=== PATIENT | male | born 1965 | race Two or more races ===

== ENCOUNTER 2017-08-25 14:14 | Outpatient (CLI) | payer OTHER | END 2017-08-25 14:23 | disposition home or self-care (01) | LOC: RAD 14:14 | DX: M54.6 Pain in thoracic spine (principal) ==

== ENCOUNTER 2019-05-17 08:05 | Outpatient (CLI) | payer OTHER | END 2019-05-17 08:20 | disposition home or self-care (01) | LOC: NUCLEAR 08:05 | DX: M06.89 Other specified rheumatoid arthritis, multiple sites (principal) | CPT/HCPCS: 78315; A9503 ==

== ENCOUNTER 2022-03-17 13:21 | Outpatient (CLI) | payer OTHER | END 2022-03-17 13:22 | disposition home or self-care (01) | LOC: NUCLEAR 13:21 | PROVIDERS: ATTEND Internal Medicine Cardiovascular Disease | DX: M81.0 Age-related osteoporosis without current pathological fracture (principal) ==

== ENCOUNTER 2023-05-07 07:58 | Outpatient (CLI) | payer OTHER | END 2023-05-07 08:00 | disposition home or self-care (01) | LOC: NUCLEAR 07:58 | PROVIDERS: ATTEND Internal Medicine | DX: G45.9 Transient cerebral ischemic attack, unspecified (principal) ==